=== PATIENT | male | born 1985 | race Two or more races ===

== ENCOUNTER → 2024-09-30 | Outpatient (CLI) | payer BC, SELFPAY ==
--- NOTE | 2024-09-30 15:45 | XR_ITS ---
Examination: MRI left ankle, without contrast Date and time of exam: September 30, 2024 1653 hrs. Indications: Left foot and ankle pain 7 years Technique: Multiple axial sagittal and coronal images of the left have been obtained with the Siemens high-resolution 1.5 [facility] MRI scanner. Images obtained include T2-weighted fat-suppressed sagittal sections, TR 3500, TE 46, T2 weighted coronal fat suppressed images, TR 3050, TE 84, T2-weighted transverse fat suppressed images, TR 3260, TE 63, proton density transverse images, TR 4720 TE 46, and T1 weighted coronal images, TR 560, TE 13. 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
--- NOTE | 2024-09-30 16:15 | XR_ITS ---
Examination: MRI left foot, without contrast Date and time of exam: September 30, 2024 1653 hrs. Indications: Left foot pain 7 years Technique: Multiple axial sagittal and coronal images of the left foot have been obtained with the Siemens high-resolution 1.5 [facility] MRI scanner. Images obtained include T2-weighted fat-suppressed sagittal sections, TR 3500, TE 46, T2 weighted coronal fat suppressed images, TR 3050, TE 84, T2-weighted transverse fat suppressed images, TR 3260, TE 63, proton density transverse images, TR 4720 TE 46, and T1 weighted coronal images, TR 560, TE 13. Findings: Mild plantar fasciitis [id number] sinus Tarsi syndrome Moderate ankle effusion No occult fracture No avascular necrosis Flexor extensor tendons intact Impression: Mild plantar fasciitis [id number] sinus Tarsi syndrome Moderate ankle effusion No occult fracture or avascular necrosis
== END | disposition home or self-care (01) ==
PROVIDERS: PCP Family Medicine; Referring Provider Internal Medicine; Visit Provider Internal Medicine
DX: S93.492A Sprain of other ligament of left ankle, initial encounter (principal); X58.XXXA Exposure to other specified factors, initial encounter; M25.572 Pain in left ankle and joints of left foot; M72.2 Plantar fascial fibromatosis; M67.874 Other specified disorders of tendon, left ankle and foot; M25.472 Effusion, left ankle
CPT/HCPCS: 73718; 73721

== ENCOUNTER → 2024-11-04 | Outpatient (CLI) | payer BC, SELFPAY ==
--- NOTE | 2024-11-04 13:42 | XR_ITS ---
Examination: MRI right ankle, without contrast Date and time of exam: November 04, 2024 1357 hours INDICATIONS: Bilateral ankle redness tenderness swelling and pain beginning 8 years ago Technique: Multiple axial sagittal and coronal images of the right ankle have been obtained with the Siemens high-resolution 1.5 [facility] MRI scanner. Images obtained include T2-weighted fat-suppressed sagittal sections, TR 3500, TE 46, T2 weighted coronal fat suppressed images, TR 3050, TE 84, T2-weighted transverse fat suppressed images, TR 3260, TE 63, proton density transverse images, TR 4720 TE 46, and T1 weighted coronal images, TR 560, TE 13. Findings: Mildly biconvex Achilles tendon Mild plantar fasciitis Mild marrow edema anterior calcaneus Mild tendinitis posterior tibial flexor digitorum tendons Small ankle effusion Extensor tendons intact Anterior posterior inferior tibiofibular ligaments intact Moderate sprain anterior talofibular ligament IMPRESSION: Mild marrow edema anterior calcaneus, clinical correlation advised Moderate sprain anterior talofibular ligament
--- NOTE | 2024-11-04 13:42 | XR_ITS ---
Examination: MRI right foot, without contrast Date and time of exam: November 04, 2024 1357 hours INDICATIONS: Lateral sided right ankle and foot pain and tenderness joint clicking 8 years Technique: Multiple axial sagittal and coronal images of the right foot have been obtained with the Siemens high-resolution 1.5 [facility] MRI scanner. Images obtained include T2-weighted fat-suppressed sagittal sections, TR 3500, TE 46, T2 weighted coronal fat suppressed images, TR 3050, TE 84, T2-weighted transverse fat suppressed images, TR 3260, TE 63, proton density transverse images, TR 4720 TE 46, and T1 weighted coronal images, TR 560, TE 13. 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
== END | disposition home or self-care (01) ==
LOC: SMRI 13:10
PROVIDERS: Referring Provider Internal Medicine; Visit Provider Internal Medicine
DX: R60.0 Localized edema (principal); S93.491A Sprain of other ligament of right ankle, initial encounter; X58.XXXA Exposure to other specified factors, initial encounter; M21.611 Bunion of right foot; M13.871 Other specified arthritis, right ankle and foot
CPT/HCPCS: 73718; 73721